=== PATIENT | male | born 1955 | race Caucasian/White ===

== ENCOUNTER 2020-04-06 21:50 | Emergency (ER) | payer MEDICARE, MEDICAID ==
[2020-04-06] MEDS ORDERED: traZODone 50 MG Tab PO ONE (21:51)
[2020-04-06] MEDS ORDERED: hydrOXYzine HCl 25 MG Tab PO ONE (21:51)
[2020-04-06 23:07] LABS: ANION GAP 8.9 mEq/L (7-13); CHLORIDE,CL 103 mmol/L (98-107); SODIUM,NA 138 mmol/L (136-145)
--- NOTE | 2020-04-06 23:45 | EDM.PDOCBH ---
ED HPI GENERAL MEDICAL PROBLEM - General Chief Complaint: Behavioral/Psych Stated Complaint: AMBULANCE Time Seen by Provider: 04/06/20 22:25 Source of Information: Reports: Patient, EMS, Other ([facility] Crisis Counselor [facility]) History Limitations: Reports: No Limitations - History of Present Illness INITIAL COMMENTS - FREE TEXT/NARRATIVE: ED via [facility] for evaluation. Patient Basic Care resident at [facility]. Long hx Mental health issues. Basic Care for med management. Reported to Nursing staff at Home this am that had cut himself on arms, and neck with pocket knife last night then left home and drove to [place] and arrived back at [place] before staff had noticed he had left. Admitted felt "suicidal " last night, Denies feeling same tonight. States just feeling overwhelmed. , has been working with [facility] for medication management. Does not feel current medications are working. Denies hallucinations. Counselor reported that had done assessment over phone today. Does not feel patient is immediate threat but Long-Term does not feel patient is appropriate for that level of care at this time. Patient refusing tx to [place]. No current bed available at [facility], patient's choice is required tx. States has been hospitalized many years ago at [facility]. - Related Data Home Meds: Home Meds ARIPiprazole [Aripiprazole] 10 mg PO DAILY 04/06/20 [History] Acetaminophen 650 mg PO BEDTIME 04/06/20 [History] Cyclobenzaprine [Flexeril] 10 mg PO BEDTIME 04/06/20 [History] Ibuprofen 800 mg PO BEDTIME 04/06/20 [History] LORazepam [Ativan] 2 mg PO BEDTIME 04/06/20 [History] LORazepam [Lorazepam] 1 mg PO DAILY 04/06/20 [History] Lactulose [Chronulac] 15 ml PO DAILY 04/06/20 [History] Mag Hydrox/Aluminum Hyd/Simeth [Mylanta Maximum Strength Liq] 15 ml PO ASDIRECTED PRN 04/06/20 [History] Multivit-Min/FA/Lycopene/Lut [Century Adults 50+ Tablet] 1 tab PO DAILY 04/06/20 [History] Gardiner-3 Acid Ethyl Esters 1 cap PO DAILY 04/06/20 [History] Sennosides [Senna] 1 tab PO DAILY 04/06/20 [History] Sennosides/Docusate Sodium [Docusate Sodium-Sennosides Tab] 1 tab PO DAILY 04/06/20 [History] Simvastatin 10 mg PO DAILY 04/06/20 [History] amLODIPine Besylate [Amlodipine Besylate] 5 mg PO DAILY 04/06/20 [History] fluvoxaMINE [Luvox] 100 mg PO BID 04/06/20 [History] hydrOXYzine HCL [hydrOXYzine] 50 mg PO ASDIRECTED PRN 04/06/20 [History] lamoTRIgine [Lamotrigine] 150 mg PO BID 04/06/20 [History] risperiDONE 2 mg PO BEDTIME 04/06/20 [History] traZODone HCl [Trazodone HCl] 300 mg PO BEDTIME 04/06/20 [History] Past Medical History Cardiovascular History: Reports: High Cholesterol, Hypertension Gastrointestinal History: Reports: GERD Genitourinary History: Reports: Chronic Renal Insuffiency Psychiatric History: Reports: Anxiety, Dementia, OCD, Psychosis, Schizophrenia, Suicide Attempt, Suicidal Ideation Social & Family History - Family History Family Medical History: Noncontributory - Tobacco Use Smoking Status *Q: Unknown Ever Smoked Second Hand Smoke Exposure: No - Caffeine Use Caffeine Use: Reports: None - Recreational Drug Use Recreational Drug Use: No ED ROS GENERAL - Review of Systems Review Of Systems: See Below Constitutional: Reports: No Symptoms HEENT: Reports: No Symptoms Respiratory: Reports: No Symptoms Cardiovascular: Reports: No Symptoms GI/Abdominal: Reports: No Symptoms Musculoskeletal: Reports: No Symptoms Skin: Reports: Wound (wrist neck) Neurological: Reports: No Symptoms Psychiatric: Reports: Anxiety, Suicidal Ideation. Denies: Hallucinations, Homicidal Ideation ED EXAM, BEHAVIORAL HEALTH - Physical Exam Exam: See Below Exam Limited By: No Limitations General Appearance: Alert, No Apparent Distress Eye Exam: Bilateral Eye: EOMI Ears: Normal External Exam, Normal TMs Nose: Normal Inspection Throat/Mouth: Normal Inspection Head: Atraumatic, Normocephalic Neck: Full Range of Motion, Other (superficial laceration bilateral lower neck. dried blood, no active bleeding) Respiratory/Chest: No Respiratory Distress, Lungs Clear Cardiovascular: Normal Peripheral Pulses, Regular Rate, Rhythm Neurological: Alert, Normal Cognition, Oriented x 3 Psychiatric: Alert, Flat Affect, Poor Eye Contact, Withdrawn. No: Suicidal Plan, Suicidal Thoughts Skin Exam: Signs of self injury, Wound/incision (multiple superficial cuts to bilateral inner wrist and bilateral lower neck ) COURSE, BEHAVIORAL HEALTH COMP - Course Vital Signs: Last Vital Signs Temp 98.6 F 04/06/20 22:18 Pulse 66 04/06/20 22:18 Resp 16 04/06/20 22:18 BP 126/61 04/06/20 22:18 Pulse Ox 95 04/06/20 22:18 Orders, Labs, Meds: Laboratory Tests 04/06/20 04/06/20 Range/Units 22:40 22:40 WBC 11.7 H (5.0-10.0) 10^3/uL RBC 4.00 L (4.6-6.2) 10^6/uL Hgb 12.9 L (14.0-18.0) g/dL Hct 37.4 L (40.0-54.0) % MCV 93.5 (80-100) fL MCH 32.3 (27.0-34.0) pg MCHC 34.5 (33.0-35.0) g/dL Plt Count 256 (150-450) 10^3/uL Neut % (Auto) 56.1 (42.2-75.2) % Lymph % (Auto) 29.6 (20.5-50.1) % [place] % (Auto) 10.6 H (2-8) % Eos % (Auto) 3.2 H (1.0-3.0) % Baso % (Auto) 0.5 (0.0-1.0) % Sodium 138 (136-145) mmol/L Potassium 3.9 (3.5-5.1) mmol/L Chloride 103 (98-107) mmol/L Carbon Dioxide 30 (21-32) mmol/L Anion Gap 8.9 (7-13) mEq/L BUN 14 (7-18) mg/dL Creatinine 1.12 (0.70-1.30) mg/dL Est Cr Clr Drug Dosing 65.76 mL/min Estimated GFR (MDRD) > 60 BUN/Creatinine Ratio 12.5 (No establ ref range) Glucose 108 H (74-99) mg/dL Calcium 8.3 L (8.5-10.1) mg/dL Total Bilirubin 0.4 (0.2-1.0) mg/dL AST 13 L (15-37) U/L ALT 32 (16-63) U/L Alkaline Phosphatase 54 (46-116) U/L Total Protein 5.8 L (6.4-8.2) g/dL Albumin 3.3 L (3.4-5.0) g/dL Globulin 2.5 Albumin/Globulin Ratio 1.32 Medications Discontinued Medications Generic Name Dose Route Start Last Admin Trade Name Randi PRN Reason Stop Dose Admin Hydroxyzine HCl Confirm 04/07/20 01:00 Atarax Administered 04/07/20 01:01 Dose 50 mg .ROUTE .STK-MED ONE Mupirocin Confirm 04/07/20 00:00 Bactroban Oint Administered 04/07/20 00:01 Dose 22 gm .ROUTE .STK-MED ONE Trazodone HCl Confirm 04/07/20 01:16 Trazodone Administered 04/07/20 01:17 Dose 300 mg .ROUTE .STK-MED ONE Re-Assessment/Re-Exam: Initial safety plan with patient to stay with brother, reported to have stopped at [place] prior to coming to hospital, expressed discomfort to take patient home with him. Counselor notified. Patient to be admitted to [facility] bed and will follow with Nelsy on Wednesday for ongoing medication stabilization. Patient agreeable with plan. Departure - Departure Time of Disposition: 23:41 Disposition: Home, Self-Care 01 Condition: Fair Clinical Impression: Self-harm, Depressive disorder, History of suicidal ideation, Laceration - Discharge Information *PRESCRIPTION DRUG MONITORING PROGRAM REVIEWED*: No *COPY OF PRESCRIPTION DRUG MONITORING REPORT IN PATIENT MELISSA: No Instructions: Wound Care, Adult Referrals: PCP,None [Primary Care Provider] - Forms: ED Department Discharge Additional Instructions: keep wounds clean dry covered wash with soap and water twice daily, pat dry apply antibiotic ointment twice daily follow up if redness swelling of drainage to wounds continue medications Follow up with [facility]ow on Wednesday morning [phone] and follow up with Nelsy on Wednesday If other concerns or suicidal thought plans urgent follow up with Crisi or call 911 Sepsis Event Note (ED) - Evaluation Sepsis Screening Result: No Definite Risk - Focused Exam Vital Signs: Vital Signs Temp Pulse Resp BP Pulse Ox 04/06/20 22:18 98.6 F 66 16 126/61 95
[2020-04-07] MEDS ORDERED: Mupirocin Oint 22 GM Tube ONE
[2020-04-07] MEDS ORDERED: hydrOXYzine HCl 25 MG Tab ONE (01:00)
[2020-04-07] MEDS ORDERED: traZODone 50 MG Tab ONE (01:16)
== END 2020-04-07 01:27 | disposition home or self-care (01) ==
LOC: DL.ED 21:50
DX: S61.512A Laceration without foreign body of left wrist, initial encounter (principal); S61.511A Laceration without foreign body of right wrist, initial encounter; S11.91XA Laceration without foreign body of unspecified part of neck, initial encounter; F32.9 Major depressive disorder, single episode, unspecified; E78.00 Pure hypercholesterolemia, unspecified; I12.9 Hypertensive chronic kidney disease with stage 1 through stage 4 chronic kidney disease, or unspecified chronic kidney disease; N18.9 Chronic kidney disease, unspecified; K21.9 Gastro-esophageal reflux disease without esophagitis; F41.9 Anxiety disorder, unspecified; F03.90 Unspecified dementia, unspecified severity, without behavioral disturbance, psychotic disturbance, mood disturbance, and anxiety; F20.9 Schizophrenia, unspecified; Z79.899 Other long term (current) drug therapy; X78.1XXA Intentional self-harm by knife, initial encounter
CPT/HCPCS: 36415; 80053; 85025; 99285; A9270; 99283